=== PATIENT | female | born 1950 | race Two or more races ===

== ENCOUNTER 2025-03-13 08:45 | Outpatient (CLI) | payer MEDICARE, MEDICAID ==
[~2025-03-13 08:45] MED LIST: ATEN25TA PO; CALC-793 PO; PANT-47 PO; VITA100D6 PO; ZINC50TA67; diatr meglu/diatrizoate 30ml oral sol.-(3 dose) bottle PO SCH; iohexol 300mg/ml 100ml inj. ONE
--- NOTE | 2025-03-14 04:26 | RADIOLOGY REPORT ---
Exam: CT CT ABDOMEN PELVIS W/ IV ORAL CONTRAST History: ABD PAIN Comparison Study: None Technique: Multidetector spiral CT of the abdomen was performed from lung bases to pubic symphysis. A xial imaging was performed with intravenous contrast following the uneventful administration of 100 m l Omnipaque 300. Oral contrast was given. Coronal and sagittal multiplanar reformats were obtained fr om the axial data set by the technologist. Radiation Dose : 1. Abdomen/Pelvis: CTDIvol 10.8 mGy, DLP 497.2 mGy*cm. Findings: Lung Bases: Lung bases are clear. Visualized portions of the heart and pericardium are unremarkable. Liver: The liver is normal in size. No focal lesions. Gallbladder and Biliary Tree: The gallbladder is unremarkable. No intrahepatic or extrahepatic bilia ry ductal dilatation. Spleen: Unremarkable Pancreas: The pancreas enhances normally and there are no focal lesions. The main pancreatic duct is not dilated Adrenal Glands: Unremarkable. Kidneys: Kidneys enhance symmetrically. No calculi or hydronephrosis. GI tract: The stomach is grossly normal in appearance. Oral contrast opacifies the stomach, small and to a lesser extent the large bowel. No evidence of small bowel wall thickening or abnormal dilatatio n to suggest bowel obstruction. The colon is unremarkable. The appendix is visualized and is normal c aliber. Peritoneum/mesentery/retroperitoneum. No evidence of free intraperitoneal air. No ascites. No evidenc e of suspicious lymphadenopathy. Abdominal Wall: Unremarkable. Vasculature: Abdominal aorta and main branches are unremarkable. Normal vascular enhancement. Urinary Bladder: Grossly unremarkable for degree of distention. 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 No aggressive focal bony lesions, acute f ractures or dislocation. IMPRESSION: 1. No acute abdominal or pelvic findings.
== END 2025-03-13 23:59 | disposition home or self-care (01) ==
LOC: RAD 08:45
PROVIDERS: ATTEND Family Medicine
DX: M51.379 Other intervertebral disc degeneration, lumbosacral region without mention of lumbar back pain or lower extremity pain (principal); R10.84 Generalized abdominal pain
CPT/HCPCS: 74177; Q9963; Q9967